=== PATIENT | female | born 1955 | race Caucasian/White ===

== ENCOUNTER 2016-04-14 18:09 | Inpatient (IN) | payer BC ==
[2016-04-14 18:52] LABS: Hematocrit 42 % (35-47); Hemoglobin 14.2 g/dl (12.0-16.0); Mean Corpuscular HGB Conc 34 g/dl (31-36); Mean Corpuscular Hemoglobin 31 pg (27-31); Mean Corpuscular Volume 92 fL (80-97); Mean Platelet Volume 10 um3 (7.4-10.4); Red Blood Count 4.58 10^6/ul (4.0-5.4); Red Cell Distribution Width 14 % (10.5-15); White Blood Count 5.6 10^3/ul (3.5-10.8)
[2016-04-14 19:05] LABS: Albumin 4.4 g/dL (3.2-5.2); BUN/Creatinine Ratio 19.5 (8-20); C Reactive Protein 1.4 mg/L (< 5.00); Calcium 9.9 mg/dL (8.6-10.3); EGFR African American 91.8 (>60); EGFR Non-African American 71.4 (>60); Potassium 4.2 mmol/L (3.5-5.0); Total Protein 7.4 g/dL (6.4-8.9)
[2016-04-14 19:37] LABS: TSH (Thyroid Stimulating Horm) 2.67 mcIU/mL (0.34-5.60)
[2016-04-14 19:41] LABS: Total Bilirubin 0.4 mg/dL (0.2-1.0)
[2016-04-14 19:50] LABS: Folate 10.78 ng/mL (>3.99)
[2016-04-14 19:56] LABS: Erythrocyte Sed Rate 12 mm/Hr (0-30)
[2016-04-14 20:06] LABS: Urine Bacteria Absent (Absent); Urine Bilirubin Negative (Negative); Urine Glucose Negative (Negative); Urine Nitrite Negative (Negative)
[2016-04-14] MEDS ORDERED: Gadoteridol* (CONTRAST) 279.3 MG/ML 10 ML IV ONE (20:09)
--- NOTE | 2016-04-14 21:28 | RAD ---
HISTORY: Weakness and numbness, history of breast cancer COMPARISONS: None TECHNIQUE: The following sequences were obtained of the thoracic spine: Sagittal and axial T1- and T2-weighted images, coronal T2-weighted images, and sagittal STIR images. Additionally, axial and sagittal T1 weighted images were obtained after contrast enhancement with a gadolinium-based intravenous contrast agent.. FINDINGS: Localization is based on counting from C2 SPINAL CORD, [place], AND [place] EQUINA: There is elevated T2/STIR signal opposite of T1-T2 located to the left of midline. There is mild expansion of the cord There is minimal peripheral enhancement. This measures 0.4 cm transversely and 2 cm in clinical dimension. There is minimal associated prominence of the central canal. ALIGNMENT: The alignment is normal. VERTEBRAL BODIES: There is mild anterolateral marginal osteophyte formation. JOINTS: There is mild osteoarthritis of the costovertebral articulations. MUSCULATURE: Unremarkable INTERVERTEBRAL DISCS: There is diffuse loss of intervertebral disc height and T2 signal throughout the spine. AXIAL IMAGES: There is no central canal stenosis or neuroforaminal narrowing. SOFT TISSUES: The visualized soft tissues of the chest and upper abdomen are unremarkable. OTHER: None. IMPRESSION: THERE IS FOCAL ELEVATED SIGNAL AND MILD EXPANSION WITHIN THE UPPER THORACIC CORD OPPOSITE OF T1-T2 TO THE LEFT OF MIDLINE. THERE IS MINIMAL PERIPHERAL ENHANCEMENT. THIS MEASURES 0.4 X 2 CM. THE APPEARANCE IS SUGGESTIVE OF AN INFLAMMATORY PROCESS, INCLUDING BUT NOT LIMITED TO DEMYELINATING DISEASE. ADDITIONALLY, GIVEN THE HISTORY OF BREAST CANCER, METASTATIC DISEASE TO THE CORD IS WITHIN THE DIFFERENTIAL.
--- NOTE | 2016-04-14 21:38 | RAD ---
HISTORY: Lesion, leg weakness, decreased sensation COMPARISONS: MRI of the thoracic spine dated April 14, 2016 TECHNIQUE: The following sequences were obtained of the cervical spine: Sagittal and axial T1- and T2-weighted images, and axial gradient echo images. Additionally, axial and sagittal T1 weighted images were obtained after contrast enhancement with a gadolinium-based intravenous contrast agent.. FINDINGS: BRAIN AND SPINAL CORD: As noted on MRI of thoracic spine, there is elevated T2/STIR signal opposite of T1-T2 measuring 0.4 cm transversely and 2 cm in craniocaudal dimension. There is minimal enhancement, that appears more homogeneous on the current examination. There is mild expansion on the cervical cord ALIGNMENT: There is trace retrolisthesis of C5 on C6 and C6 on C7 VERTEBRAL BODIES: There is multilevel anterolateral marginal osteophyte formation. There are Modic type I reactive endplate changes at C6-C7. JOINTS: There is uncovertebral and facet osteoarthritis. MUSCULATURE: Unremarkable INTERVERTEBRAL DISCS: There is diffuse loss of intervertebral disc height and T2 signal throughout the spine. AXIAL IMAGES: C2-C3: There is bilateral facet hypertrophy. There is no significant neural foraminal narrowing or central canal stenosis. C3-C4: There is bilateral facet hypertrophy. There is moderate left neural foraminal narrowing. There is no significant central canal stenosis. C4-C5: There is bilateral uncovertebral and facet hypertrophy. There is moderate bilateral neural foraminal narrowing. There is no significant central canal stenosis. C5-C6: There is bilateral uncovertebral facet hypertrophy. There is severe bilateral neural foraminal narrowing. There is no significant central canal stenosis. C6-C7: There is bilateral uncovertebral facet hypertrophy. There is severe bilateral neural foraminal narrowing. There is no significant central canal stenosis. C7-T1: There is bilateral uncovertebral and facet hypertrophy. There is mild bilateral foraminal narrowing. There is no significant central canal stenosis. SOFT TISSUES: The visualized soft tissues of the neck are unremarkable. OTHER: None. IMPRESSION: NOTED ON THE MRI OF THE THORACIC SPINE, THERE IS AN EXPANSILE LESION OF THE CERVICAL CORD OPPOSITE OF T1-T2 CENTERED TO THE LEFT OF MIDLINE MEASURING UP TO 2 CM IN CRANIOCAUDAL DIMENSION. THIS DEMONSTRATES MILD ENHANCEMENT THAT APPEARS MORE HOMOGENEOUS ON THE CURRENT EXAMINATION THAN THE PERIPHERAL ENHANCEMENT NOTED ON THE MRI OF THE THORACIC SPINE. THIS MAY BE RELATED TO THE TIMING OF CONTRAST DEMONSTRATION, THE CERVICAL MRI WAS PERFORMED LATER THAN THE THORACIC MRI. THE APPEARANCE IS SUGGESTIVE OF AN INFLAMMATORY PROCESS, THOUGH GIVEN THE HISTORY OF MALIGNANCY METASTATIC DISEASE TO THE CORD IS WITHIN THE DIFFERENTIAL..
[2016-04-14 23:04] LABS: BF RBC Count #1 0; BF RBC Count #2 0; Body Fluid Appearance Clear; RBC counts within 6%? Yes; WBC counts within 15%? Yes
--- NOTE | 2016-04-14 23:05 | ED ---
Lisset Peraza Michael, scribed for Leroy Miles MD on 04/14/16 at 1937 . Neurological HPI - HPI Summary HPI Summary: 60 y/o female comes to the ED presenting with LLE weakness and RLE numbness that started 5 days ago. The pt describes the sensation in her RLE as dull. The numbness radiates to her hip and right quadrant of the abd. She denies numbness in the anus or vagina. The PMHx is significant for shingles without a rash 3 weeks ago. The shingles spread from her right flank to her mid chest. The pain occurred in intermittent episodes, and she currently still has pain from the shingles. The pt is taking Gabapentin. She also has a hx of breast cancer. - History of Current Complaint Chief Complaint: EDAltMentalStatus Stated Complaint: WEAKNESS IN LEGS Time Seen by Provider: 04/14/16 18:20 Hx Obtained From: Patient, Medical Records Onset/Duration: Gradual Onset, Started days ago, Still Present Timing: Constant Onset Severity: Moderate Current Severity: Moderate Neurological Deficit Location: RLE, LLE Pain Intensity: 0 Pain Scale Used: 0-10 Numeric Character: Dull Associated Signs and Symptoms: Positive: Weakness, Pain - from shingles, Numbness - Allergy/Home Medications Allergies/Adverse Reactions: Allergies Allergy/AdvReac Type Severity Reaction Status Date / Time No Known Allergies Allergy Verified 04/14/16 18:15 PMH/Surg Hx/FS Hx/Imm Hx Previously Healthy: No - breast cancer. shingles. Infectious Disease History: No Infectious Disease History: Denies: Traveled Outside the [place] in Last 30 Days - Family History Known Family History: Positive: Other - cancer - Social History Occupation: Employed Full-time Lives: Alone Alcohol Use: None Substance Use Type: Reports: None Smoking Status (MU): Never Smoked Tobacco Review of Systems Positive: Other - pain from shingles. Negative: Fever Positive: Weakness, Numbness All Other Systems Reviewed And Are Negative: Yes Physical Exam - Summary Physical Exam Summary: General: Comfortable, pleasant, alert HEENT: Moist mucosa Neck: soft, supple, no adenopathy, no edema Heart: S1, S2, RRR, no murmurs, rubs, or gallops Lungs: Clear to auscultation, breathing comfortable, no wheezes or rales Abdominal: Soft, flat, nontender Extremities: No edema, no calf tenderness Neuro: Alert and oriented x 3, c-spine full ROM, negative spurling's, negative c -spine tenderness, cranial nerves 3-12 intact, no spinal percussion tenderness, upper extremities pin prink intact, entire RLE loss of pin prick, upper extremities 5 out of 5 bilateral strength, hip flexion 4 out of 5 in left ankle flexion and extension bilaterally, reflexes bilateral patella 2 on the right and 3 on the left, proprioception intact. Psych: Logical, coherent Triage Information Reviewed: Yes Vital Signs On Initial Exam: Initial Vitals Temp Pulse Resp BP Pulse Ox 98.2 F 94 18 121/76 100 04/14/16 18:11 04/14/16 18:11 04/14/16 18:11 04/14/16 18:11 04/14/16 18:11 Vital Signs Reviewed: Yes - Justice Coma Scale Coma Scale Total: 15 Procedures - Lumbar Puncture Lumbar Puncture Note: sterile procedure used-betadine prep 3x. 22 gauge hilary needle used with no complications, 6 CC clear CSF. Diagnostics - Vital Signs Vital Signs Temp Pulse Resp BP Pulse Ox 04/14/16 18:11 98.2 F 94 18 121/76 100 - Laboratory Lab Results: Lab Results 04/14/16 04/14/16 Range/Units 18:35 18:35 WBC 5.6 (3.5-10.8) 10^3/ul RBC 4.58 (4.0-5.4) 10^6/ul Hgb 14.2 (12.0-16.0) g/dl Hct 42 (35-47) % MCV 92 (80-97) fL MCH 31 (27-31) pg MCHC 34 (31-36) g/dl RDW 14 (10.5-15) % Plt Count 232 (150-450) 10^3/ul MPV 10 (7.4-10.4) um3 Neut % (Auto) 57.8 (38-83) % Lymph % (Auto) 24.9 L (25-47) % [place] % (Auto) 10.8 H (1-9) % Eos % (Auto) 5.2 (0-6) % Baso % (Auto) 1.3 (0-2) % Absolute Neuts (auto) 3.2 (1.5-7.7) 10^3/ul Absolute Lymphs (auto) 1.4 (1.0-4.8) 10^3/ul Absolute Monos (auto) 0.6 (0-0.8) 10^3/ul Absolute Eos (auto) 0.3 (0-0.6) 10^3/ul Absolute Basos (auto) 0.1 (0-0.2) 10^3/ul Absolute Nucleated RBC 0 10^3/ul Nucleated RBC % 0 ESR Pending Sodium 134 (133-145) mmol/L Potassium 4.2 (3.5-5.0) mmol/L Chloride 99 L (101-111) mmol/L Carbon Dioxide 28 (22-32) mmol/L Anion Gap 7 (2-11) mmol/L BUN 16 (6-24) mg/dL Creatinine 0.82 (0.51-0.95) mg/dL Est GFR ( Amer) 91.8 (>60) Est GFR (Non-Af Amer) 71.4 (>60) BUN/Creatinine Ratio 19.5 (8-20) Glucose 162 H (70-100) mg/dL Calcium 9.9 (8.6-10.3) mg/dL Total Bilirubin Pending AST 21 (13-39) U/L ALT 19 (7-52) U/L Alkaline Phosphatase 48 (34-104) U/L C-Reactive Protein 1.40 (< 5.00) mg/L Total Protein 7.4 (6.4-8.9) g/dL Albumin 4.4 (3.2-5.2) g/dL Globulin 3.0 (2-4) g/dL Albumin/Globulin Ratio 1.5 (1-3) Vitamin B12 Pending Folate Pending TSH Pending Result Diagrams: 04/14/16 18:35 04/14/16 18:35 Lab Statement: Any lab studies that have been ordered have been reviewed, and results considered in the medical decision making process. - Additional Comments Diagnostic Additional Comments: MRI Cervical Spine: Radiologist- NOTED ON THE MRI OF THE THORACIC SPINE, THERE IS AN EXPANSILE LESION OF THE CERVICAL CORD OPPOSITE OF T1-T2 CENTERED TO THE LEFT OF MIDLINE MEASURING UP TO 2 CM IN CRANIOCAUDAL DIMENSION. THIS DEMONSTRATES MILD ENHANCEMENT THAT APPEARS MORE HOMOGENEOUS ON THE CURRENT EXAMINATION THAN THE PERIPHERAL ENHANCEMENT NOTED ON THE MRI OF THE THORACIC SPINE. THIS MAY BE RELATED TO THE TIMING OF CONTRAST DEMONSTRATION, THE CERVICAL MRI WAS PERFORMED LATER THAN THE THORACIC MRI. THE APPEARANCE IS SUGGESTIVE OF AN INFLAMMATORY PROCESS, THOUGH GIVEN THE HISTORY OF MALIGNANCY METASTATIC DISEASE TO THE CORD IS WITHIN THE DIFFERENTIAL. MRI Thoracic Spine: Radiologist- THERE IS FOCAL ELEVATED SIGNAL AND MILD EXPANSION WITHIN THE UPPER THORACIC CORD OPPOSITE OF T1-T2 TO THE LEFT OF MIDLINE. THERE IS MINIMAL PERIPHERAL ENHANCEMENT. THIS MEASURES 0.4 X 2 CM. THE APPEARANCE IS SUGGESTIVE OF AN INFLAMMATORY PROCESS, INCLUDING BUT NOT LIMITED TO DEMYELINATING DISEASE. ADDITIONALLY, GIVEN THE HISTORY OF BREAST CANCER, METASTATIC DISEASE TO THE CORD IS WITHIN THE DIFFERENTIAL. Course/Dx - Course Course Of Treatment: Consulted Dr. Segura (neurology) at 2[address]. Dr. Segura recommends LP and wants the hospitalist to admit. Consulted Dr. Cueto ( hospitalist) at 2215. Pt is accepted as an admission. Polina has new new neurologic symptoms and findings that clinically match her MRI findings. We will admit. - Diagnoses Provider Diagnoses: Neurological deficit present Discharge - Discharge Plan Condition: Fair Disposition: ADMITTED TO [facility] The documentation as recorded by the Lisset pichardo Michael accurately reflects the service I personally performed and the decisions made by , Leroy Miles MD.
[2016-04-14 23:12] LABS: CSF Glucose 63 mg/dL (40-70)
[2016-04-14 23:23] LABS: BF WBC Count #1 3; BF WBC Count #2 3; Body Fluid WBC 3 /mcL
[2016-04-14 23:25] LABS: Body Fluid Total Cells Counted 50
--- NOTE | 2016-04-14 23:27 | HP ---
H&P (Free Text) History and Physical: PCP: Mack Rizvi NP Date/Time of Evaluation: 04/14/2016 2330 CC: W/N/T R>LLE HPI: Mrs Carroll is a 60YO female w/ remote HX R breast CA who presents reporting onset 3 weeks ago of intermittent severe sharp/electric/burning pain from the L axilla wrapping around under the L breast. She was seen by her PCP who diagnosed zoster sine herpete and prescribed gabapentin which helped. Starting 5 -6 days ago she started noticing LLE weakness and RLE N/T which progressed to the point that she went to get into a hot bath stepping first with her R leg and thinking she needed more hot water. When she put her L foot in the water, she realized it was scalding hot. She called a friend, Abdon Mancilla MD neurology, who advised her to go the ED for an MRI of the spine which showed an enhancing lesion at T1 with a differential of focal inflammatory process vs MS vs tumor. Ximena Segura MD neurology was consulted & will evaluate in the AM. 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 her was diagnosed with terminal esophageal CA and she quit to care for him until he passed last year; full code status FamHx: HTN, HLD; ROS: as above, otherwise reviewed and all were negative Constitutional: NAD, normally developed, well-nourished white female vitals: Vital Signs Temp 36.8 C 04/14/16 18:11 Pulse 94 04/14/16 18:11 Resp 18 04/14/16 18:11 BP 121/76 04/14/16 18:11 Pulse Ox 100 04/14/16 18:11 Intake & Output 04/14/16 04/14/16 04/15/16 11:59 23:59 11:59 Weight 68.946 kg HEENM: atraumatic; hearing: clinically intact; oropharynx: clear, mucosa moist Neck: soft tissue: non-tender; thyroid: normal Pulmonary: clear to auscultation bilaterally, good aeration, no accessory muscle use CV: RR/RR, normal S1S2, no carotid bruit, no jugular venous distention, 2+ B DP/ PT, no edema Abdominal: soft, non-distended, non-tender, no rebound/guarding/rigidity, normoactive bowel sounds, no hepatosplenomegaly or masses, no costovertebral angle tenderness Musculoskeletal: general: grossly intact; gait: stable Integumental: normal appearance and texture Neurological sensory crude touch: decreased RLE pinprick: absent RLE Psychiatric orientation: AA&O to PPS affect: calm mood: pleasant eye contact: good content: reliable responses: timely insight: good Testing: Lab Results 04/14/16 04/14/16 04/14/16 Range/Units 18:35 18:35 19:55 WBC 5.6 (3.5-10.8) 10^3/ul RBC 4.58 (4.0-5.4) 10^6/ul Hgb 14.2 (12.0-16.0) g/dl Hct 42 (35-47) % MCV 92 (80-97) fL MCH 31 (27-31) pg MCHC 34 (31-36) g/dl RDW 14 (10.5-15) % Plt Count 232 (150-450) 10^3/ul MPV 10 (7.4-10.4) um3 Neut % (Auto) 57.8 (38-83) % Lymph % (Auto) 24.9 L (25-47) % [place] % (Auto) 10.8 H (1-9) % Eos % (Auto) 5.2 (0-6) % Baso % (Auto) 1.3 (0-2) % Absolute Neuts (auto) 3.2 (1.5-7.7) 10^3/ul Absolute Lymphs (auto) 1.4 (1.0-4.8) 10^3/ul Absolute Monos (auto) 0.6 (0-0.8) 10^3/ul Absolute Eos (auto) 0.3 (0-0.6) 10^3/ul Absolute Basos (auto) 0.1 (0-0.2) 10^3/ul Absolute Nucleated RBC 0 10^3/ul Nucleated RBC % 0 ESR 12 (0-30) mm/Hr Sodium 134 (133-145) mmol/L Potassium 4.2 (3.5-5.0) mmol/L Chloride 99 L (101-111) mmol/L Carbon Dioxide 28 (22-32) mmol/L Anion Gap 7 (2-11) mmol/L BUN 16 (6-24) mg/dL Creatinine 0.82 (0.51-0.95) mg/dL Est GFR ( Amer) 91.8 (>60) Est GFR (Non-Af Amer) 71.4 (>60) BUN/Creatinine Ratio 19.5 (8-20) Glucose 162 H (70-100) mg/dL Calcium 9.9 (8.6-10.3) mg/dL Total Bilirubin 0.40 (0.2-1.0) mg/dL AST 21 (13-39) U/L ALT 19 (7-52) U/L Alkaline Phosphatase 48 (34-104) U/L C-Reactive Protein 1.40 (< 5.00) mg/L Total Protein 7.4 (6.4-8.9) g/dL Albumin 4.4 (3.2-5.2) g/dL Globulin 3.0 (2-4) g/dL Albumin/Globulin Ratio 1.5 (1-3) Vitamin B12 345 (180-914) pg/mL Folate 10.78 (>3.99) ng/mL TSH 2.67 (0.34-5.60) mcIU/mL Urine Color Straw Urine Appearance Clear Urine pH 7.0 (5-9) Ur Specific [place] 1.009 L (1.010-1.030) Urine Protein Negative (Negative) Urine Ketones Negative (Negative) Urine Blood Negative (Negative) Urine Nitrate Negative (Negative) Urine Bilirubin Negative (Negative) Urine Urobilinogen Negative (Negative) Ur Leukocyte Esterase Trace H (Negative) Urine WBC (Auto) Trace(0-5/hpf) (Absent) Urine RBC (Auto) Trace(0-2/hpf) (Absent) Ur Squamous Epith Cells Present H (Absent) Urine Bacteria Absent (Absent) Urine Glucose Negative (Negative) Fluid Source Fluid Volume mL Fluid Color Fluid Appearance Fluid WBC /mcL Fluid RBC /mcL Fluid Tot Cell Count Fluid Lymphocytes % Fluid Monocytes % Fluid Cell Count Rvw By CSF Cell Count Tube # CSF Glucose (40-70) mg/dL CSF Total Protein (15-45) mg/dL 04/14/16 04/14/16 Range/Units 21:10 21:10 WBC (3.5-10.8) 10^3/ul RBC (4.0-5.4) 10^6/ul Hgb (12.0-16.0) g/dl Hct (35-47) % MCV (80-97) fL MCH (27-31) pg MCHC (31-36) g/dl RDW (10.5-15) % Plt Count (150-450) 10^3/ul MPV (7.4-10.4) um3 Neut % (Auto) (38-83) % Lymph % (Auto) (25-47) % [place] % (Auto) (1-9) % Eos % (Auto) (0-6) % Baso % (Auto) (0-2) % Absolute Neuts (auto) (1.5-7.7) 10^3/ul Absolute Lymphs (auto) (1.0-4.8) 10^3/ul Absolute Monos (auto) (0-0.8) 10^3/ul Absolute Eos (auto) (0-0.6) 10^3/ul Absolute Basos (auto) (0-0.2) 10^3/ul Absolute Nucleated RBC 10^3/ul Nucleated RBC % ESR (0-30) mm/Hr Sodium (133-145) mmol/L Potassium (3.5-5.0) mmol/L Chloride (101-111) mmol/L Carbon Dioxide (22-32) mmol/L Anion Gap (2-11) mmol/L BUN (6-24) mg/dL Creatinine (0.51-0.95) mg/dL Est GFR ( Amer) (>60) Est GFR (Non-Af Amer) (>60) BUN/Creatinine Ratio (8-20) Glucose (70-100) mg/dL Calcium (8.6-10.3) mg/dL Total Bilirubin (0.2-1.0) mg/dL AST (13-39) U/L ALT (7-52) U/L Alkaline Phosphatase (34-104) U/L C-Reactive Protein (< 5.00) mg/L Total Protein (6.4-8.9) g/dL Albumin (3.2-5.2) g/dL Globulin (2-4) g/dL Albumin/Globulin Ratio (1-3) Vitamin B12 (180-914) pg/mL Folate (>3.99) ng/mL TSH (0.34-5.60) mcIU/mL Urine Color Urine Appearance Urine pH (5-9) Ur Specific [place] (1.010-1.030) Urine Protein (Negative) Urine Ketones (Negative) Urine Blood (Negative) Urine Nitrate (Negative) Urine Bilirubin (Negative) Urine Urobilinogen (Negative) Ur Leukocyte Esterase (Negative) Urine WBC (Auto) (Absent) Urine RBC (Auto) (Absent) Ur Squamous Epith Cells (Absent) Urine Bacteria (Absent) Urine Glucose (Negative) Fluid Source Cerebral spinal Fluid Volume 1.1 mL Fluid Color Colorless Fluid Appearance Clear Fluid WBC 3 /mcL Fluid RBC 0 /mcL Fluid Tot Cell Count 50 Fluid Lymphocytes 96 % Fluid Monocytes 4 % Fluid Cell Count Rvw By Pending CSF Cell Count Tube # 4 CSF Glucose 63 (40-70) mg/dL CSF Total Protein 49 H (15-45) mg/dL MRI C-spine W/WO, personally reviewed: IMPRESSION: NOTED ON THE MRI OF THE THORACIC SPINE, THERE IS AN EXPANSILE LESION OF THE CERVICAL CORD OPPOSITE OF T1 -T2 CENTERED TO THE LEFT OF MIDLINE MEASURING UP TO 2 CM IN CRANIOCAUDAL DIMENSION. THIS DEMONSTRATES MILD ENHANCEMENT THAT APPEARS MORE HOMOGENEOUS ON THE CURRENT EXAMINATION THAN THE PERIPHERAL ENHANCEMENT NOTED ON THE MRI OF THE THORACIC SPINE. THIS MAY BE RELATED TO THE TIMING OF CONTRAST DEMONSTRATION, THE CERVICAL MRI WAS PERFORMED LATER THAN THE THORACIC MRI. THE APPEARANCE IS SUGGESTIVE OF AN INFLAMMATORY PROCESS, THOUGH GIVEN THE HISTORY OF MALIGNANCY METASTATIC DISEASE TO THE CORD IS WITHIN THE DIFFERENTIAL. MRI T-spine W/WO, personally reviewed: IMPRESSION: THERE IS FOCAL ELEVATED SIGNAL AND MILD EXPANSION WITHIN THE UPPER THORACIC CORD OPPOSITE OF T1-T2 TO THE LEFT OF MIDLINE. THERE IS MINIMAL PERIPHERAL ENHANCEMENT. THIS MEASURES 0.4 X 2 CM. THE APPEARANCE IS SUGGESTIVE OF AN INFLAMMATORY PROCESS, INCLUDING BUT NOT LIMITED TO DEMYELINATING DISEASE. ADDITIONALLY, GIVEN THE HISTORY OF BREAST CANCER, METASTATIC DISEASE TO THE CORD IS WITHIN THE DIFFERENTIAL. Impression: 60F presenting with an evolving spinal neurologic lesion & symptoms DIAGNOSIS & PLAN Primary evolving spinal neurologic lesion & symptoms : Ximena Segura MD neurology consulted by ED, will evaluate in AM : supportive care Secondary HX breast CA : concern for metastatic disease as etiology for above Admission Rational: observation for monitoring and expedition of neurology evaluation DVTp: SCDs, no anticoagulation 2nd LP tonight in ED Code Status: full HCP: brother, Ahmet
[2016-04-15] MEDS ORDERED: Acetaminophen TAB* 325 MG PO PRN (00:35)
[2016-04-15] MEDS ORDERED: Melatonin (NF) 3 MG TAB PO PRN (00:35)
[2016-04-15] MEDS ORDERED: Ondansetron INJ* 2 MG/ML VIAL IV PRN (00:35)
[2016-04-15] MEDS ORDERED: traMADol TAB* 50 MG PO PRN (00:35)
[2016-04-15] MEDS: Omeprazole CAP* 20 MG PO SCH (06:38)
[2016-04-15] MEDS: Docusate CAP* 100 MG PO SCH ×3 (08:12→22:03)
--- NOTE | 2016-04-15 10:24 | PN ---
Subjective Date of Service: 04/15/16 Interval History: Patient has continued numbness in RLE, and clumsiness in LLE. Reports had shingles-like neuropathic pain in L axilla-breast around 03/24 for about 8 days. Numbness and coordination problems present in bilat LE for about 6 days now. Family History: Findings - denies FH of MS Social History: Unchanged from Admission Past Medical History: Unchanged from Admission Objective Active Medications: Acetaminophen (Tylenol Tab*) 650 mg PO Q6H PRN PRN Reason: FEVER/PAIN Docusate Sodium (Colace Cap*) 100 mg PO BID [facility] Last Admin: 04/15/16 08:12 Dose: Not Given Lorazepam (Ativan Inj*) 1 mg IV BEDTIME PRN PRN Reason: ANXIETY Melatonin (Melatonin (Nf)) 3 mg PO BEDTIME PRN; Protocol PRN Reason: Sleep Omeprazole (Prilosec Cap*) 20 mg PO DAILY@0600 [facility] Last Admin: 04/15/16 06:38 Dose: Not Given Ondansetron HCl (Zofran Inj*) 4 mg IV Q6H PRN PRN Reason: NAUSEA Tramadol HCl (Ultram*) 50 mg PO Q6H PRN PRN Reason: PAIN Vital Signs 04/15/16 07:48 Temperature 36.4 C Pulse Rate 64 Respiratory 16 Rate Blood Pressure 109/75 (mmHg) O2 Sat by Pulse 98 Oximetry Oxygen Devices in Use Now: None Eyes: No Scleral Icterus Ears/Nose/Mouth/Throat: NL Teeth, Lips, Gums Neck: NL Appearance and Movements; NL JVP Respiratory: Symmetrical Chest Expansion and Respiratory Effort, Clear to Auscultation Cardiovascular: NL Sounds; No Murmurs; No JVD, RRR Abdominal: NL Sounds; No Tenderness; No Distention Lymphatic: No Cervical Adenopathy Skin: No Rash or Ulcers Neurological: Alert and Oriented x 3, NL Muscle Strength and Tone, - - gait w/ mild L-sided ataxia Lines/Tubes/Other Access: Clean, Dry and Intact Peripheral IV Nutrition: Taking PO's Result Diagrams: 04/14/16 18:35 04/14/16 18:35 Additional Lab and Data: Lab Results Laboratory Tests 04/14/16 04/14/16 21:10 21:10 Fluid Source Cerebral spinal Fluid Volume 1.1 Fluid Color Colorless Fluid Appearance Clear Fluid WBC 3 Fluid RBC 0 Fluid Tot Cell Count 50 Fluid Lymphocytes 96 Fluid Monocytes 4 Fluid Cell Count Rvw By Pending CSF Cell Count Tube # 4 CSF Glucose 63 CSF Total Protein 49 H Assess/Plan/Problems-Billing Assessment: 60 yo woman w/ history of breast cancer, DCIS treated w/ excision, radiation ( IMRT) admitted w/ leg weakness/numbness, with abnormal signal MRI C-spine - Patient Problems (1) 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 Dr. Segura to see today. Ordered MRI brain due to concern re MS. Spinal fluid IgG and oligoclonal bands pending. Could also send for WNV, enterovirus, coxsackie. (2) HX: breast cancer Current Visit: Yes Status: Acute Priority: Medium Code(s): Z85.3 - PERSONAL HISTORY OF MALIGNANT NEOPLASM OF BREAST SNOMED Code(s): 106766861 Comment: Given localized cancer, approach to radiation, very unlikely this is metastatic lesion or radiation changes to spine. Discussed w/ patient. DVT prophylaxis not needed due to age, ambulatory status.
[2016-04-15] MEDS ORDERED: NS 0.9% 100 ML* 100 ML ONE (15:11)
[2016-04-15] MEDS: NS 0.9% IVPB SCH ×2 (15:16→21:39)
[2016-04-15] MEDS: ACYCLOVIR IVPB SCH ×2 (15:16→21:39)
[2016-04-15] MEDS: predniSONE TAB* 10 MG PO SCH (15:17)
--- NOTE | 2016-04-15 17:39 | CONS ---
CC: SAMMY Pratt NEUROLOGY CONSULTATION: DATE OF CONSULT: 04/15/16 LOCATION: The patient is an inpatient on . REQUESTING PHYSICIAN: Leroy Miles MD in the emergency department. PRIMARY CARE PROVIDER: SAMMY Pratt REASON FOR CONSULT: Myelitis. 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 Preceding these neurologic symptoms, approximately 3 weeks ago, she had the onset of burning pain and itching, which extended from her left scapular area and radiated in a dermatomal pattern around the axilla and under her left breast. At times, she would have what she describes as pain attacks, where the pain was electrical in nature and extremely sharp and then returned to more of a baseline burning. The day after the onset of these symptoms, she presented to her primary care provider's office and was given Valtrex, which she says she took twice daily for 5 days. She never developed a rash that would be typical of shingles but was diagnosed with zoster sine herpete. She was also placed on gabapentin 300 mg 4 times daily for the neuropathic pain and has been weaning herself off of that medication. Over the last 6 days or so, she noticed some weakness in her legs and some incoordination in walking. In addition, she felt that she fatigues much more easily with activity over this time period than is typical for her. What eventually caused her to come to the emergency department was she went to get into a bath last night and tested the water first with her right leg and felt that it was on the cool side and needed additional hot water and then, she went to get in with her left leg and realized it was practically scalding. She called a radiologist friend in [place] as well as Dr. Mancilla who is a friend of hers who advised her to go to the emergency department for further evaluation. At that point, an MRI of her cervical and thoracic spine was obtained and showed a hyperintense intramedullary lesion in the T1/T2 region on the left hand side, which is faintly enhancing and somewhat expansile in nature. PAST MEDICAL HISTORY: Breast cancer, status post partial mastectomy x2 in March 2015 and 5 weeks of local radiation. HOME MEDICATIONS: Calcium and vitamin D. ALLERGIES: No known drug allergies. FAMILY HISTORY: There is no known family history of neurologic or demyelinating disorders. Otherwise, notable for hypertension and hyperlipidemia. SOCIAL HISTORY: She denies tobacco use. She is a social drinker and tends to drink 1 glass of wine daily. She denies recreational drug use. 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 REVIEW OF SYSTEMS: She denies headache or mental status changes. She denies weight loss, nausea, skin rash, or appetite changes. She denies any past history of vision loss or transient other neurologic symptoms. PHYSICAL EXAMINATION: Vital Signs: Temperature 97.5, blood pressure 109/75, heart rate is 64, and oxygen saturation 98% on room air. On general examination , she is a pleasant, nontoxic-appearing female. She is normocephalic. Skin exam reveals no lesions in the left axilla or under the breast on the left side or on the back but the skin is mildly hyperalgesic. Heart revealed a regular rate and rhythm with no murmurs, rubs, or gallops. Lungs are clear to auscultation bilaterally. On neurologic examination, she has a normal mental status. Speech is fluent without dysarthria or aphasia. Her pupils, fundi, and eye movements are normal. Visual french are full to confrontation. Facial sensation and musculature are full and symmetric. Hearing is intact to finger rub. Tongue protrudes in the midline and the palate elevates symmetrically. Shoulder shrug is full and symmetric. On motor examination, there is normal bulk and tone in the upper and lower extremities. Strength is full in the upper extremities and in the right lower extremity, but there is approximately grade 4 weakness of the left knee flexor and ankle dorsiflexor. On sensory examination, she has a spinal level at approximately T5- T6 on the right hand side to temperature and pinprick extending down the entire right leg. Vibration is mildly reduced to 16 or 17 seconds in the great toes bilaterally. Proprioception is intact bilaterally. Her reflexes were 3+ in the right knee with crossed adduction, 2+ in the left knee and UEs, 2+ in the ankles and downgoing toes bilaterally. There is no ataxia on [id number], but there is mild ataxia on [id number] on the left. Romberg is negative. She has some difficulty rising onto her heels bilaterally, a little worse on the left, but she is able to rise onto her toes. She had some difficulty initially with tandem walk, but this improved when she was told to direct her gaze forward rather than down. DIAGNOSTIC STUDIES/LAB DATA: Laboratory data reviewed includes an essentially normal CBC, chemistry panel notable for a nonfasting glucose that is elevated at 162 and a low chloride of 99. B12 is 345, folate is 10.78, and TSH is 2.67. Lumbar puncture was obtained in the emergency department yesterday and showed white blood cells of 3, 0 rbc's, glucose of 63, and very mildly elevated protein of 49. Urinalysis was notable only for trace leukocyte esterase and slightly low specific gravity. MRI of the cervical and thoracic spine was personally reviewed and is as described in the HPI. The differential noted by the radiologist includes a inflammatory disease and metastatic disease given the history of breast cancer. IMPRESSION: Polina Carroll is a 60-year-old woman who presented to the emergency department with lower extremity sensory changes and strength changes and was found to have a myelitis on MRI in the thoracic region. This is approximately 2 cm in length and is not longitudinally extensive. This occurs in the setting of what was potentially zoster sine herpete 3 weeks ago. The differential includes varicella zoster myelitis as well as demyelinating disease such as neuromyelitis optica or multiple sclerosis or sarcoidosis. I think it is less likely that this represents metastatic disease from her treated breast cancer or other neoplastic process. At this time, there are several studies pending including CSF angiotensin converting enzyme, bacterial culture, IgG index, oligoclonal bands, flow cytometry, varicella zoster, IgM and IgG antibodies in the CSF, varicella zoster PCR in the CSF as well as NMO antibodies in the serum. She should also undergo an MRI of the brain to evaluate for the presence of any other demyelinating lesions with and without contrast. At this time, given the possibility of varicella-zoster virus myelitis, I recommend treatment with IV acyclovir 10 mg/kg q.8 hours. In addition, she will be started on prednisone 1 mg/kg for 5 days. She is already on omeprazole, which should help to protect her GI system with the high-dose prednisone. I have informally consulted with Dr. Morocho as well who feels it is reasonable to treat with acyclovir at this time. Going forward, I will consider placing a PICC line for continued treatment with acyclovir depending on the studies returning that are currently pending. I told the patient that she should plan to stay here at least through the weekend. Thank you for this consultation. [id number]/[facility] #: [id number] MICHAEL
[2016-04-15] MEDS: Gabapentin CAP(*) 300 MG PO SCH ×2 (21:39→22:03)
[2016-04-15] MEDS: LORazepam INJ* 2 MG/ML 1 ML VIAL IV PRN (22:09)
[2016-04-16] MEDS: NS 0.9% IVPB SCH ×3 (06:41→21:39)
[2016-04-16] MEDS: ACYCLOVIR IVPB SCH ×3 (06:41→21:39)
[2016-04-16] MEDS: Omeprazole CAP* 20 MG PO SCH (06:44)
[2016-04-16] MEDS: predniSONE TAB* 10 MG PO SCH (07:54)
[2016-04-16] MEDS: Gabapentin CAP(*) 300 MG PO SCH ×2 (07:54→20:59)
[2016-04-16] MEDS: Docusate CAP* 100 MG PO SCH ×2 (07:57→21:47)
--- NOTE | 2016-04-16 11:25 | PN ---
Subjective Date of Service: 04/16/16 Interval History: Patient is up and ambulating. States gait may be a bit more unstable. Dr. Segura's consult appreciated. No new complaints. Family History: Unchanged from Admission - denies FH of MS Social History: Unchanged from Admission Past Medical History: Unchanged from Admission Objective Active Medications: Acetaminophen (Tylenol Tab*) 650 mg PO Q6H PRN PRN Reason: FEVER/PAIN Docusate Sodium (Colace Cap*) 100 mg PO BID [facility] Last Admin: 04/16/16 07:57 Dose: Not Given Gabapentin (Neurontin Cap(*)) 300 mg PO BID [facility] Last Admin: 04/16/16 07:54 Dose: 300 mg Acyclovir Sodium 690 mg/ (Sodium Chloride) 113.8 mls @ 113.8 mls/hr IVPB Q8HR [facility] PRN Reason: Per Protocol Last Admin: 04/16/16 06:41 Dose: 113.8 mls/hr Lorazepam (Ativan Inj*) 1 mg IV BEDTIME PRN PRN Reason: ANXIETY Last Admin: 04/15/16 22:09 Dose: 1 mg Melatonin (Melatonin (Nf)) 3 mg PO BEDTIME PRN; Protocol PRN Reason: Sleep Omeprazole (Prilosec Cap*) 20 mg PO DAILY@0600 [facility] Last Admin: 04/16/16 06:44 Dose: Not Given Ondansetron HCl (Zofran Inj*) 4 mg IV Q6H PRN PRN Reason: NAUSEA Prednisone (Deltasone Tab*) 70 mg PO DAILY [facility] Stop: 04/19/16 09:01 Last Admin: 04/16/16 07:54 Dose: 70 mg Tramadol HCl (Ultram*) 50 mg PO Q6H PRN PRN Reason: PAIN Vital Signs 04/16/16 04/16/16 04/16/16 07:54 08:00 08:01 Temperature Pulse Rate 62 Respiratory 16 16 16 Rate Blood Pressure 103/71 (mmHg) O2 Sat by Pulse 97 Oximetry Oxygen Devices in Use Now: None Appearance: looks well Eyes: No Scleral Icterus Ears/Nose/Mouth/Throat: Clear Oropharnyx Neck: NL Appearance and Movements; NL JVP Respiratory: Clear to Auscultation, Clear to Percussion Cardiovascular: NL Sounds; No Murmurs; No JVD Neurological: - - ataxic gait Lines/Tubes/Other Access: Clean, Dry and Intact Peripheral IV Result Diagrams: 04/14/16 18:35 04/14/16 18:35 Additional Lab and Data: Lab Results Laboratory Tests 04/14/16 04/14/16 21:10 21:10 Fluid Source Cerebral spinal Fluid Volume 1.1 Fluid Color Colorless Fluid Appearance Clear Fluid WBC 3 Fluid RBC 0 Fluid Tot Cell Count 50 Fluid Lymphocytes 96 Fluid Monocytes 4 Fluid Cell Count Rvw By Pending CSF Cell Count Tube # 4 CSF Glucose 63 CSF Total Protein 49 H Assess/Plan/Problems-Billing Assessment: 60 yo woman w/ history of breast cancer, DCIS treated w/ excision, radiation ( IMRT) admitted w/ leg weakness/numbness, with abnormal signal MRI C-spine - Patient Problems (1) 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 Currently treating for VZV myelitis. MRI brain pending due to concern re MS. Spinal fluid IgG and oligoclonal bands pending. Needs 3 wks IV acyclovir. Can go home once PICC inserted. (2) HX: breast cancer Current Visit: Yes Status: Acute Priority: Medium Code(s): Z85.3 - PERSONAL HISTORY OF MALIGNANT NEOPLASM OF BREAST SNOMED Code(s): 770010599 Comment: Given localized cancer, approach to radiation, very unlikely this is metastatic lesion or radiation changes to spine. Discussed w/ patient. DVT prophylaxis not needed due to age, ambulatory status. Status and Disposition: likely discharge tomorrow after MRI, PICC placement, home IV infusion set up
[2016-04-16] MEDS: LORazepam INJ* 2 MG/ML 1 ML VIAL IV PRN (21:39)
[2016-04-17] MEDS: ACYCLOVIR IVPB SCH ×2 (06:00→13:07)
[2016-04-17] MEDS: NS 0.9% IVPB SCH ×2 (06:00→13:07)
[2016-04-17] MEDS: Omeprazole CAP* 20 MG PO SCH (06:29)
[2016-04-17] MEDS: Docusate CAP* 100 MG PO SCH (07:11)
[2016-04-17 07:13] LABS: BUN/Creatinine Ratio 21.9 (8-20); Calcium 9.1 mg/dL (8.6-10.3); EGFR African American 104.9 (>60); EGFR Non-African American 81.6 (>60); Potassium 3.7 mmol/L (3.5-5.0)
[2016-04-17] MEDS: Gabapentin CAP(*) 300 MG PO SCH (07:22)
[2016-04-17] MEDS: predniSONE TAB* 10 MG PO SCH (07:22)
[2016-04-17 07:52] VITALS: BP 97/72
[2016-04-17] MEDS ORDERED: Gadoteridol* (CONTRAST) 279.3 MG/ML 10 ML IV ONE (10:36)
--- NOTE | 2016-04-17 10:52 | RAD ---
HISTORY: Breast cancer, spinal cord lesion COMPARISONS: MRI dated April 14, 2016 TECHNIQUE: The following sequences were obtained of the head: Sagittal FLAIR images, axial T2-weighted images, axial FLAIR images, axial susceptibility weighted images, axial T1-weighted images. Additionally, axial diffusion-weighted images were obtained with calculated apparent diffusion coefficients. Additionally, sagittal, coronal, and axial T1-weighted images were obtained after contrast enhancement with a gadolinium-based intravenous contrast agent. FINDINGS: HEMORRHAGE/INFARCT: There is no hemorrhage or acute infarct. MASSES/SHIFT: There is no mass or shift. EXTRA-AXIAL SPACES/MENINGES: There are no extra-axial fluid collections. SULCI AND VENTRICLES: The sulci and ventricles are normal in size and position for the patient's stated age. CEREBRUM: There are scattered small foci of elevated T2/FLAIR signal in the periventricular white matter, including lesion that is oriented perpendicular to the surface of the right lateral ventricle, consistent with Terrazas's finger, best seen on sagittal image 9 of series 3. There is no associated abnormal enhancement. There is a small cystic lesion along the right periventricular white matter that follow CSF on all sequences BRAINSTEM: There are no focal parenchymal abnormalities. CEREBELLUM: There are no focal parenchymal abnormalities. The cerebellar tonsils are normal in size and position. SELLA: The sella is normal. PINEAL: The pineal region is clear. CP ANGLE/TEMPORAL BONES: The labyrinthine structures are grossly normal. VESSELS: Normal flow-voids are noted within the visualized vertebral vasculature. DIFFUSION ABNORMALITIES: There are no diffusion abnormalities. PARANASAL SINUSES/MASTOIDS: There is an air-fluid level within the sphenoid sinus. ORBITS: The orbits are unremarkable. BONES AND SOFT TISSUE: No bone or soft tissue abnormalities are noted. OTHER: None IMPRESSION: 1. SCATTERED WHITE MATTER LESIONS, INCLUDING A LESION ORIENTED PERPENDICULAR TO THE SURFACE OF THE RIGHT LATERAL VENTRICLE. GIVEN THE PRESENCE OF A CORD LESION, THE APPEARANCE IS SUGGESTIVE OF DEMYELINATING DISEASE IN THE SETTING OF MULTIPLE SCLEROSIS, IN THE CORRECT CLINICAL SETTING. 2. THERE IS NO ABNORMAL ENHANCEMENT TO SUGGEST ACTIVE INFLAMMATION. 3. SMALL CYSTIC LESION OF THE RIGHT PERIVENTRICULAR WHITE MATTER WHICH MAY REPRESENT A MINIMAL OR URETERIC CYSTS, OR POSSIBLY A CHRONIC LACUNAR INFARCT. 4. AIR-FLUID LEVEL WITHIN THE SPHENOID SINUS. IN THE CORRECT CLINICAL SETTING, THIS MAY REPRESENT ACUTE SINUSITIS.
--- NOTE | 2016-04-17 13:11 | PN ---
Progress Note - Progress Note Note: TIme spent on discharge 40 minutes.
--- NOTE | 2016-04-17 13:17 | DCNOTE ---
Subjective Date of Service: 04/17/16 Interval History: Feelings of numbness R leg about the same. No new c/o. Little pain. No rash has developed. Family History: Unchanged from Admission - denies FH of MS Social History: Unchanged from Admission Past Medical History: Unchanged from Admission Objective Active Medications: Acetaminophen (Tylenol Tab*) 650 mg PO Q6H PRN PRN Reason: FEVER/PAIN Docusate Sodium (Colace Cap*) 100 mg PO BID [facility] Last Admin: 04/17/16 07:11 Dose: Not Given Gabapentin (Neurontin Cap(*)) 300 mg PO BID [facility] Last Admin: 04/17/16 07:22 Dose: 300 mg Heparin Sodium (Porcine) (Heparin Flush Picc/Ml/Cvc(*)) 1 ml FLUSH 0600,1800 [facility] PRN Reason: Protocol Acyclovir Sodium 690 mg/ (Sodium Chloride) 113.8 mls @ 113.8 mls/hr IVPB Q8HR [facility] PRN Reason: Per Protocol Last Admin: 04/17/16 13:07 Dose: 113.8 mls/hr Lorazepam (Ativan Inj*) 1 mg IV BEDTIME PRN PRN Reason: ANXIETY Last Admin: 04/16/16 21:39 Dose: 1 mg Melatonin (Melatonin (Nf)) 3 mg PO BEDTIME PRN; Protocol PRN Reason: Sleep Omeprazole (Prilosec Cap*) 20 mg PO DAILY@0600 [facility] Last Admin: 04/17/16 06:29 Dose: Not Given Ondansetron HCl (Zofran Inj*) 4 mg IV Q6H PRN PRN Reason: NAUSEA Prednisone (Deltasone Tab*) 70 mg PO DAILY [facility] Stop: 04/19/16 09:01 Last Admin: 04/17/16 07:22 Dose: 70 mg Tramadol HCl (Ultram*) 50 mg PO Q6H PRN PRN Reason: PAIN Vital Signs 04/16/16 04/16/16 04/16/16 15:40 20:00 20:59 Temperature 98.0 F Pulse Rate 79 Respiratory 18 16 16 Rate Blood Pressure 105/68 (mmHg) O2 Sat by Pulse 98 Oximetry 04/16/16 04/16/16 04/16/16 21:39 22:03 22:59 Temperature 97.6 F Pulse Rate 66 Respiratory 16 18 16 Rate Blood Pressure 103/81 (mmHg) O2 Sat by Pulse 95 Oximetry 04/17/16 04/17/16 04/17/16 07:22 07:52 09:22 Temperature 98.0 F Pulse Rate 100 Respiratory 16 16 18 Rate Blood Pressure 97/72 (mmHg) O2 Sat by Pulse 96 Oximetry Oxygen Devices in Use Now: None Appearance: Alert, partly up in bed. In good spirits. Looks comfortable. Eyes: No Scleral Icterus Extremities: No Edema, No Clubbing, Cyanosis, - Skin: No Rash or Ulcers, No Nodules or Sclerosis, - Neurological: Alert and Oriented x 3 Result Diagrams: 04/14/16 18:35 04/17/16 06:37 Additional Lab and Data: Lab Results Laboratory Tests 04/14/16 04/14/16 21:10 21:10 Fluid Source Cerebral spinal Fluid Volume 1.1 Fluid Color Colorless Fluid Appearance Clear Fluid WBC 3 Fluid RBC 0 Fluid Tot Cell Count 50 Fluid Lymphocytes 96 Fluid Monocytes 4 Fluid Cell Count Rvw By Pending CSF Cell Count Tube # 4 CSF Glucose 63 CSF Total Protein 49 H Assess/Plan/Problems-Billing Assessment: 60 yo woman w/ history of breast cancer, DCIS treated w/ excision, radiation ( IMRT) admitted w/ leg weakness/numbness, with abnormal signal MRI C-spine - Patient Problems (1) Myelitis Current Visit: Yes Status: Acute Code(s): G04.91 - MYELITIS, UNSPECIFIED SNOMED Code(s): 45322856 Comment: Differential includes acute viral myelitis, AIDP, MS, post-zoster myelitis. Currently treating for VZV myelitis. MRI brain felt not indicative of MS per Dr. Segura. No enhancing lesions seen. Spinal fluid IgG and oligoclonal bands pending. Needs 2 wks IV acyclovir per Dr. Segura, 3 more days prednisone to complete 5 days tx. Status and Disposition: Discharge now, home IV infusion set up. Fup ROMEL Rizvi, Dr. Segura.
[2016-04-17 14:48] LABS: Albumin 4690 mg/dL; CSF Albumin 27.7 mg/dL (<=27.0); CSF IgG/Albumin Ratio 0.12 (<=0.21); CSF Immunoglobulin G Index 0.57 (<=0.85); CSF Immunoglobulin G Synthesis 1.79 mg/24 h (<=12); Immunoglobulin G 971 mg/dL (767 - 1590); Serum IgG/Albumin Ratio 0.21 (<=0.40)
[2016-04-17] MEDS ORDERED: methylPREDNISolone 125 MG* 2 ML VIAL IV ONE (14:49)
[2016-04-17 15:09] LABS: HSV 1 PCR, CSF Negative (Negative); HSV 2 PCR, CSF Negative (Negative)
[2016-04-17] MEDS ORDERED: methylPREDNISolone SOD SUCC* 1,000 MG in NS 0.9% 250 ML* 250 ML IVPB ONE (15:30)
[2016-04-17 15:49] LABS: CSF Oligoclonal Bands 0 bands; Oligoclonal Proteins Interpret 0 bands (<4); Serum Oligoclonal Bands 0 bands
[2016-04-17 17:11] LABS: Varicella-Zoster IgM Antibody Negative (Negative)
--- NOTE | 2016-04-17 17:47 | DS ---
DATE OF ADMISSION: 04/15/2016 DATE OF DISCHARGE: 04/17/2016 This 60-year-old woman presented with 6 days of difficulty walking due to sensory changes in the right lower extremity. She had already been treated with very small amounts of valacyclovir as an outpatient. She never developed a rash. She was also being treated with gabapentin. She was starting to taper. The rest of history is detailed and dictated in notes. Patient was seen by Dr. Segura in consultation. She had MRI of the thoracic and cervical spine, as well as brain MRI. She has a lesion in the upper thoracic cord opposite T1, T2 to the left of midline, with minimal peripheral enhancement , measuring 0.4 x 2 cm. Brain MRI showed a few small white matter lesions, but there was no abnormal enhancement. Patient was treated with intravenous acyclovir. She seemed to be stable, possibly improving in some of her symptoms. She did still say her gait was a little bit off due to the numbness in her legs, but seemed satisfied with her progress. LABORATORY DATA: Laboratory work done so far has really been fairly unremarkable other than she has 3 white cells in her spinal fluid, glucose was 63, protein was 49 which is minimally elevated CSF. Angiotensin converting enzyme, IgG, Herpes simplex, PCR on the CSF, oligoclonal bands, Varicella zoster , IgM antibody and leukemia/lymphoma panel have been sent and NMO-IgG evaluation have all been sent out and are pending at this time. The patient will followup with Dr. Segura and ROMEL Rizvi. FINAL DIAGNOSES: Myelitis of uncertain etiology. DISCHARGE MEDICATIONS: 1. Acyclovir 670 mg IV every 8 hours to complete a 14 day course. 2. Prednisone 70 mg daily, 10 mg tablets 7 every day to complete a 5 day course. 3. Gabapentin 300 mg b.i.d. 4. Acetaminophen 650 mg every 6 hours. CC: Dr. Segura; Kelsey Rizvi NP * [id number]/[facility] #: [id number] [facility]
--- NOTE | 2016-04-18 03:11 | PN ---
PROGRESS NOTE: DATE OF EVALUATION: 04/17/16 - ROOM #420 HISTORY: Mrs. Carroll has had no new symptoms overnight. She is tolerating acyclovir well, but she questions where the prednisone caused some diarrhea this morning. Her symptoms are essentially stable. She underwent MRI of the brain with and without contrast yesterday and we had an extensive discussion regarding the results and implications as below. MEDICATIONS: 1. Tylenol q.6 hours. 2. Acyclovir q.8 hours IV. 3. Colace 100 mg twice daily. 4. Gabapentin 300 mg twice daily. 5. Ativan 1 mg at bedtime as needed for anxiety. 6. Melatonin 3 mg at bedtime as needed. 7. Prilosec 20 mg daily. 8. Prednisone 70 mg daily. 9. Tramadol 50 mg q.6 hours p.r.n. pain. PHYSICAL EXAMINATION: Vital Signs: Temperature 98, blood pressure 97/72, heart rate 100 and oxygen saturation 96% on room air. On general exam, she is a very pleasant woman but anxious. Her speech is fluent without dysarthria or aphasia. Pupils were equal, round and reactive from 3 to 2 mm bilaterally. There is no APD. Eyes movements are full. The face is symmetric with full strength. In the lower extremities, there is continued diminished sensation to temperature in the right leg and in the torso up to approximately the T5 or T6 level. She endorses that the sensation is uncomfortable and unpleasant. Light touch is diminished in the same distribution but not necessarily uncomfortable. Reflexes are 2+ in the upper and lower extremities. Heel taps on the left are clumsy. Her gait is narrow based and stable, but the placement of her left foot is less accurate than the right and she has somewhat of a slap foot gait. DATA: MRI of the brain with and without contrast was personally reviewed and shows some areas of T2 hyperintensity in the periventricular white matter most notably in the right frontal region one of which is oriented perpendicular to the surface of the right lateral ventricle and is consistent with Terrazas's finger. There is no associated abnormal enhancement. CSF IgG index returned and was normal. Oligoclonal bands, CSF angiotensin converting enzyme, HSV 1 and 2, PCR and varicella zoster IgM antibodies are pending. IMPRESSION: Polina Carroll is a 60-year-old female who presented with a transverse myelitis at the T1-T2 level on the left in the setting of symptoms that sounded consistent with Zoster sine herpete. She has been treated with IV acyclovir as well as oral steroids. Her brain MRI was reviewed with the neuroradiologist and appears more consistent with demyelinating disease though there are no enhancing lesions in the brain. I had a long discussion with Polina and her [id number] and her boyfriend about the likely diagnosis of multiple sclerosis. We discussed acute treatment typically involves IV steroids followed an oral steroid taper. We also discussed prognosis as well as treatment with various medications. At this point, she is going to continue the IV acyclovir until all studies returned in her CSF and if negative for varicella zoster virus, then I would have her stop the acyclovir. In addition, I am going to give a gram of Solu-Medrol today and she can still be discharged but her home care should be set up to have Solu-Medrol 500 mg IV twice daily for the next 4 days starting tomorrow. While she is on this, she will stop taking the oral prednisone. Once she has finished with this course, I will likely give her an oral steroid taper. I will see her back in the office within a month and we will discuss disease modifying therapies more in depth in addition to following up on her clinical symptoms. I also contacted the lab to ensure the following studies are ordered/pending on CSF: VZV PCR, VZV IgM and IgG antibodies. More than 45 minutes were spent in counseling education on multiple sclerosis and review of the pertinent testing. [id number]/[facility] #: [id number] MICHAEL
[2016-04-18 17:17] LABS: CSF Angiotension Conv Enz 1.6 U/L (0.0-2.5)
== END 2016-04-17 16:45 | disposition home or self-care (01) | DRG 43 ==
LOC: ED 18:09 → MED 04-15 00:29 → OBSVTOIN 04-15 17:46
PROVIDERS: ADMIT Hospitalist; ATTEND Internal Medicine
PROC: 02HV33Z Insertion of Infusion Device into Superior Vena Cava, Percutaneous Approach (ICD-10-PCS; principal; 2016-04-17)
DX: G35 Multiple sclerosis (principal); Z85.3 Personal history of malignant neoplasm of breast; Z82.49 Family history of ischemic heart disease and other diseases of the circulatory system; Z83.42 Family history of familial hypercholesterolemia; Z92.3 Personal history of irradiation
CPT/HCPCS: 36415; 70553; 72156; 72157; 80048; 80053; 81003; 81015; 82164; 82607; 82746; 82784; 82945; 83916; 84157; 84443; 85025; 85652; 86140; 86255; 86256; 86787; 87070; 87086; 87205; 87529; 88184; 88187; 88188; 89051; A9270-GY; A9579; C1751; G8978-GP-CJ; G8979-GP-CI; J0133; J2060; J2930; J7512